=== PATIENT | male | born 1965 | race Caucasian/White ===

== ENCOUNTER 2019-04-22 11:01 | Observation (INO) ==
[2019-04-22] MEDS ORDERED: Amiodarone Premix 150 MG/100 ML BAG IVPB ONE (11:25)
[2019-04-22 11:42] LABS: Basophils # 0.1 K/mcL (0.0-0.2); Basophils % 0.7 %; Eosinophils # 0.2 K/mcL (0.0-0.6); Eosinophils % 1.7 %; Hematocrit 44.8 % (37.5-50.1); Hemoglobin 15.4 g/dL (12.9-16.9); Immature Granulocytes % 0.3 % (0-4); Lymphocytes # 1.3 K/mcL (0.6-4.6); Lymphocytes % 13.7 %; Mean Corpuscular HGB Conc 34.4 g/dL (31.6-35.5); Mean Corpuscular Hemoglobin 31.2 pg (28.0-33.3); Mean Corpuscular Volume 90.9 fL (83.0-100.0); Mean Platelet Volume 11.6 fL (9.4-12.4); Monocytes # 0.9 K/mcL (0.0-1.3); Monocytes % 9.6 %; Neutrophils # 6.9 K/mcL (1.6-8.9); Platelet Count 186 K/mcL (140-400); Red Blood Count 4.93 M/mcL (4.19-5.50); Red Cell Distribution Width 12.9 % (11.5-14.5); White Blood Count 9.4 K/mcL (4.3-11.1)
[2019-04-22] MEDS ORDERED: Amiodarone Premix 360 MG/200 ML BAG IVC ONE (11:44)
[2019-04-22 11:49] LABS: Prothrombin Time 11.5 Seconds (9.4-12.1)
[2019-04-22 11:52] LABS: Activated Partial Thrombo Time 31.3 Seconds (26.0-36.0)
[2019-04-22 12:02] LABS: BUN/Creatinine Ratio 18 (6-26); Blood Urea Nitrogen 22 mg/dL (6-20); Calcium 9.2 mg/dL (8.6-10.3); Carbon Dioxide 23 mEq/L (23-29); Chloride 110 mEq/L (98-107); Glucose 95 mg/dL (70-105); Magnesium 2.1 mg/dL (1.6-2.6); Osmolality,Calculated 295 (280-300); Potassium 4.1 mEq/L (3.5-5.1); Sodium 141 mEq/L (136-145); eGFR For African Americans > 60 (> 60); eGFR For Non-African Americans > 60 (> 60)
[2019-04-22 12:03] LABS: Troponin I < 0.03 ng/mL (< 0.04)
[2019-04-22 13:34] LABS: Thyroid Stimulating Hormone 2.164 mcIU/mL (0.340-5.600)
[2019-04-22] MEDS ORDERED: Ondansetron 4 MG/2 ML VIAL IVP PRN (15:32)
[2019-04-22] MEDS ORDERED: Naloxone 0.4 MG/ML INJ IVP PRN (15:32)
[2019-04-22] MEDS: Nicotine 21 MG PATCH.TD24 TD SCH (17:13)
[2019-04-22] MEDS ORDERED: Perflutren Lipid Microsphere 1.3 ML in 0.9 % Sodium Chloride 8.7 ML IVP ONE (17:49)
[2019-04-22] MEDS ORDERED: Perflutren Lipid Microsphere 2 ML VIAL ONE (17:56)
[2019-04-22] MEDS: Famotidine 20 MG TABLET PO SCH (19:48)
[2019-04-22] MEDS: *HR* Heparin 5,000 UNIT/ML VIAL SQ SCH (20:06)
[2019-04-22] MEDS: Acetaminophen 325 MG TABLET PO PRN (23:18)
[2019-04-23 04:33] LABS: Basophils # 0.1 K/mcL (0.0-0.2); Basophils % 0.9 %; Eosinophils # 0.3 K/mcL (0.0-0.6); Eosinophils % 3.6 %; Hematocrit 42.3 % (37.5-50.1); Hemoglobin 14.1 g/dL (12.9-16.9); Immature Granulocytes % 0.3 % (0-4); Lymphocytes # 1.8 K/mcL (0.6-4.6); Lymphocytes % 23.6 %; Mean Corpuscular HGB Conc 33.3 g/dL (31.6-35.5); Mean Corpuscular Hemoglobin 30.5 pg (28.0-33.3); Mean Corpuscular Volume 91.6 fL (83.0-100.0); Mean Platelet Volume 11.5 fL (9.4-12.4); Monocytes # 0.7 K/mcL (0.0-1.3); Neutrophils # 4.7 K/mcL (1.6-8.9); Platelet Count 163 K/mcL (140-400); Red Blood Count 4.62 M/mcL (4.19-5.50); Red Cell Distribution Width 12.9 % (11.5-14.5); Segmented Neutrophils % 62.6 %; White Blood Count 7.5 K/mcL (4.3-11.1)
[2019-04-23 04:50] LABS: BUN/Creatinine Ratio 21 (6-26); Blood Urea Nitrogen 26 mg/dL (6-20); Calcium 8.9 mg/dL (8.6-10.3); Carbon Dioxide 21 mEq/L (23-29); Chloride 110 mEq/L (98-107); Glucose 117 mg/dL (70-105); Osmolality,Calculated 294 (280-300); Potassium 3.7 mEq/L (3.5-5.1); Sodium 139 mEq/L (136-145); eGFR For African Americans > 60 (> 60); eGFR For Non-African Americans 60 (> 60)
[2019-04-23] MEDS: *HR* Heparin 5,000 UNIT/ML VIAL SQ SCH ×3 (05:12→20:14)
[2019-04-23] MEDS: Nicotine 21 MG PATCH.TD24 TD SCH (07:49)
[2019-04-23] MEDS: Famotidine 20 MG TABLET PO SCH ×2 (07:49→20:14)
[2019-04-23] MEDS: Aspirin Enteric Coated 81 MG Tablet PO SCH (07:49)
[2019-04-23] MEDS: Metoprolol XL (24 HR) Succ 25 MG TAB.ER.24H PO SCH (13:05)
[2019-04-24] MEDS: Acetaminophen 325 MG TABLET PO PRN (00:39)
[2019-04-24 04:25] LABS: Basophils # 0.1 K/mcL (0.0-0.2); Basophils % 1.1 %; Eosinophils # 0.2 K/mcL (0.0-0.6); Eosinophils % 2.7 %; Hematocrit 44.9 % (37.5-50.1); Hemoglobin 14.8 g/dL (12.9-16.9); Immature Granulocytes % 0.3 % (0-4); Lymphocytes # 1.5 K/mcL (0.6-4.6); Lymphocytes % 20.2 %; Mean Corpuscular Hemoglobin 30.8 pg (28.0-33.3); Mean Corpuscular Volume 93.5 fL (83.0-100.0); Mean Platelet Volume 11.3 fL (9.4-12.4); Monocytes # 0.8 K/mcL (0.0-1.3); Monocytes % 11.1 %; Neutrophils # 4.8 K/mcL (1.6-8.9); Platelet Count 168 K/mcL (140-400); Red Cell Distribution Width 12.7 % (11.5-14.5); Segmented Neutrophils % 64.6 %; White Blood Count 7.4 K/mcL (4.3-11.1)
[2019-04-24 04:46] LABS: BUN/Creatinine Ratio 17 (6-26); Blood Urea Nitrogen 22 mg/dL (6-20); Calcium 9.1 mg/dL (8.6-10.3); Carbon Dioxide 24 mEq/L (23-29); Chloride 109 mEq/L (98-107); Glucose 92 mg/dL (70-105); Magnesium 2.1 mg/dL (1.6-2.6); Osmolality,Calculated 293 (280-300); Sodium 140 mEq/L (136-145); eGFR For African Americans > 60 (> 60); eGFR For Non-African Americans 56 (> 60)
[2019-04-24] MEDS: *HR* Heparin 5,000 UNIT/ML VIAL SQ SCH (05:39)
[2019-04-24] MEDS: Aspirin Enteric Coated 81 MG Tablet PO SCH (08:01)
[2019-04-24] MEDS: Metoprolol XL (24 HR) Succ 25 MG TAB.ER.24H PO SCH (08:01)
[2019-04-24] MEDS: Nicotine 21 MG PATCH.TD24 TD SCH (08:01)
[2019-04-24] MEDS: Famotidine 20 MG TABLET PO SCH (08:01)
[2019-04-24 11:10] VITALS: BP 119/99
== END 2019-04-24 14:21 | disposition home or self-care (01) ==
LOC: EMEROOARM 11:01 → 2NNU 11:01 → SUATTDRO 13:30 → 2NNU 14:31
PROVIDERS: ADMIT Internal Medicine; ATTEND Internal Medicine